=== PATIENT | male | born 1955 | race Caucasian/White ===

== ENCOUNTER 2017-05-23 05:35 | Inpatient (IN) | payer MEDICAID ==
[2017-05-22 13:13] LABS: BASOPHILS # (AUTO) 0.1 X10'3 (0-0.2); BASOPHILS % (AUTO) 0.6 % (0-1); EOSINOPHILS # (AUTO) 0.2 X10'3 (0-0.9); EOSINOPHILS % (AUTO) 1.8 % (0-6); LYMPHOCYTES % (AUTO) 11.4 % (21-51); MEAN CORPUSCULAR HEMOGLOBIN 32.6 PG (27.0-31.0); MEAN CORPUSCULAR HGB CONC 33.8 % (33.0-36.5); MEAN CORPUSCULAR VOLUME 96.3 FL (78-98); MEAN PLATELET VOLUME 10.2 FL (7.4-10.4); MONOCYTES # (AUTO) 0.9 X10'3 (0-0.9); MONOCYTES % (AUTO) 9.6 % (2-12); NEUTROPHILS # (AUTO) 6.8 X10'3 (1.8-7.7); NEUTROPHILS % (AUTO) 76.6 % (42-75); PRE OP HEMATOCRIT 39.1 % (42.0-52.0); PRE OP HEMOGLOBIN 13.2 g/dL (14.0-17.9); PRE OP PLATELET COUNT 178 X10'3 (140-440); RED BLOOD COUNT 4.06 X10'6 (4.70-6.10); RED CELL DISTRIBUTION WIDTH 15.4 % (11.5-14.5)
[2017-05-22 13:14] LABS: CLARITY,URINE CLEAR (Clear); COLOR,URINE YELLOW (Yellow); GLUCOSE, URINE NEGATIVE (Neg); KETONES,URINE NEGATIVE (Neg); LEUKOCYTE ESTERASE ,URINE NEGATIVE (Neg); NITRITES, URINE NEGATIVE (Neg); OCCULT BLOOD,URINE NEGATIVE (Neg); PROTEIN,URINE NEGATIVE (Neg); UROBILINOGEN,URINE 0.2 E.U/dL (0.2-1.0)
[2017-05-22 13:22] LABS: UA COLLECTION TYPE CLN CATCH MIDSTREAM
[2017-05-22 13:24] LABS: PRE OP INR 1.1 INR; PRE OP PROTIME 11.2 SECONDS (9.0-12.0)
[2017-05-22 13:28] LABS: HEMOGLOBIN A1C 6.9 % (4.5-6.2)
[2017-05-22 13:30] LABS: ALBUMIN 3.2 G/DL (3.4-5.0); ALKALINE PHOSPHATASE 159 IU/L (46-116); BLOOD UREA NITROGEN 35 MG/DL (7-18); CALCIUM 8.9 MG/DL (8.5-10.1); CHLORIDE 102 MMOL/L (99-107); CREATININE 1.13 MG/DL (0.60-1.10); PRE OP ALT 53 U/L (30-65); PRE OP ANION GAP 10 (8-16); PRE OP AST 20 U/L (10-37); PRE OP BILIRUB, TOTAL 0.6 MG/DL (0.0-1.0); PRE OP GLUCOSE 170 MG/DL (70-104); PRE OP SODIUM 143 MMOL/L (135-145); TOTAL CARBON DIOXIDE 30.8 MMOL/L (24-32); TOTAL PROTEIN 6.5 G/DL (6.4-8.2); eGFR 66 ML/MIN
[2017-05-22 13:31] LABS: PRE OP POTASSIUM 3.1 MMOL/L (3.4-5.1)
[2017-05-23] VITALS (19 sets, daily range): BP systolic 100–148; BP diastolic 56–88
[~2017-05-23] VITALS: Ht 170.2 cm; Wt 137.0 kg
[2017-05-23 05:16] LABS: ABG BASE EXCESS 4.2 mmol/L (-2.0-3.0); ABG OXYGEN SATURATION 91.3 % (95-98); ABG PH (T) 7.474 (7.350-7.450); ABG PO2 (T) 60.5 mmHg (83-108); ALLEN'S TEST Positive; FCOHb 1.3 % (0.5-1.5); FMetHb 0.3 % (0.3-1.12); FO2Hb 89.8 % (94-100); TOTAL HEMOGLOBIN 13.4 G/dl (14.0-18.0)
[~2017-05-23 05:35] MED LIST: ALBU18HF2 INH; AMIO200T57 PO; ATOR40TA71 PO; BUDE0.5A11 IH; CARV25TA PO; COU5T PO; HYDR-565 PO; LISI-600 PO; METF500T PO; NITR0.4T51 SL; VANCOMYCIN INJ 1000 MG in NORMAL SALINE 250ml IV.SOLN IV ONE; albuterol 2.5 MG/3 ML nebule NEB ONE; ceFAZolin inj. 3,000 MG in normal saline 100ml IV soln 100 ML IV ONE; famotidine 20mg tablet PO ONE; mupirocin 2% ointment 22GM TP ONE; ringers solution, lacted 1,000 ML IV SCH
[2017-05-23] MEDS ORDERED: propofol inj 40 ML IV ONE (05:50)
[2017-05-23] MEDS ORDERED: propofol inj 20 ML IV ONE ×2 (05:51)
[2017-05-23] MEDS ORDERED: rocuronium 10mg/ml inj IV ONE (05:51)
[2017-05-23] MEDS ORDERED: etomidate 2mg/ml inj. ONE (05:52)
[2017-05-23] MEDS ORDERED: LIDOcaine 1%/PF (10mg/ml) 5ml vial ONE (05:53)
[2017-05-23] MEDS ORDERED: LIDOcaine 1% (10mg/ml) 2ml vial ONE (05:58)
[2017-05-23] MEDS ORDERED: epiNEPHrine 1 mg/ml inj ONE (05:59)
[2017-05-23] MEDS ORDERED: phenylephrine 10mg/ml inj IV ONE (05:59)
[2017-05-23] MEDS ORDERED: mupirocin 2% ointment 22GM TP ONE (06:00)
[2017-05-23] MEDS: insulin regular, human 100 UNITS in normal saline 100ml IV soln 99 ML IV SCH ×6 (06:00→17:08)
[2017-05-23] MEDS ORDERED: MIDAZolam 5mg/ml 2ml vial IV ONE (06:00)
[2017-05-23] MEDS ORDERED: fentaNYL /PF 50mcg/ml 5ml ampule ONE ×5 (06:32→09:20)
[2017-05-23] MEDS ORDERED: MIDAZolam 5mg/ml 2ml vial ONE (06:34)
[2017-05-23] MEDS ORDERED: albuterol 2.5 MG/3 ML nebule ONE (06:41)
[2017-05-23] MEDS ORDERED: nitroGLYCERIN in D5W 50mg/250ml (Tridil) infusion IV ONE (07:00)
[2017-05-23] MEDS ORDERED: sevoflurane 250ml liquid IH ONE (07:00)
[2017-05-23] MEDS ORDERED: potassium Cl 2 mEq/ml inj IV ONE (07:00)
[2017-05-23] MEDS ORDERED: protamine sulf. 10mg/ml inj. IV ONE (07:00)
[2017-05-23] MEDS ORDERED: albuterol 2.5 MG/3 ML nebule NEB ONE (07:10)
[2017-05-23] MEDS ORDERED: Potassium Cl inj 40 MEQ in normal saline 250ml IV soln 230 ML IV ONE ×2 (07:20→10:25)
[2017-05-23 07:21] LABS: ISTAT CREATININE 1.2 mg/dL (0.8-1.3); ISTAT HGB 13.6 g/dl (14.0-18.0); ISTAT IONIZED CALCIUM 1.06 mmol/L (1.03-1.32); POC BUN/CREATININE RATIO 27.5 (5.4-32.0)
[2017-05-23] MEDS ORDERED: FURO-149 PO (07:25)
[2017-05-23 07:39] LABS: ISTAT K 2.9 mmol/L (3.5-5.1)
[2017-05-23] MEDS ORDERED: papaverine 30 mg/ml 2ml inj. ONE (08:00)
[2017-05-23] MEDS ORDERED: heparin 10,000 units/1 ML INJ ONE (08:00)
[2017-05-23] MEDS ORDERED: calcium chloride 100 MG/1 ML inj IV ONE (08:00)
[2017-05-23 08:36] LABS: ABG BASE EXCESS 2.9 mmol/L (-2.0-3.0); ABG HCO3 26.7 mmol/L (22.0-26.0); ABG OXYGEN SATURATION 99.2 % (95-98); ABG PCO2 38.1 mmHg (35.0-45.0); ABG PH 7.463 (7.350-7.450); ABG PO2 329.2 mmHg (60.0-100.0); CL (ABG) 104 mmol/L (99-107); FCOHb 0.5 % (0.5-1.5); FMetHb 0.3 % (0.3-1.12); FO2Hb 98.4 % (94-100); GLUCOSE (ABG) 180 mg/dl (70-105); IONIZED CA (ABG) 1.04 mmol/L (1.03-1.32); K (ABG) 4.2 mmol/L (3.3-5.1); NA (ABG) 134 mmol/L (135-145); TOTAL HEMOGLOBIN 11.7 G/dl (14.0-18.0)
[2017-05-23] MEDS ORDERED: papaverine 30 mg/ml 2ml inj. IA ONE (09:02)
[2017-05-23] MEDS ORDERED: ePHEDrine 50MG/ML INJ. ONE (09:23)
[2017-05-23 10:21] LABS: ABG BASE EXCESS VENOUS 4.7 mmol/L; ABG HCO3 VENOUS 30.7 mmol/L; ABG PCO2 VENOUS 52.1 mmHg; ABG PO2 VENOUS 44.8 mmHg; CL (ABG) 103 mmol/L (99-107); FCOHb VENOUS 0.9 %; FHHb VENOUS 22.9 %; FMetHb VENOUS 0.2 %; GLUCOSE (ABG) 162 mg/dl (70-105); IONIZED CA (ABG) 1.08 mmol/L (1.03-1.32); K (ABG) 3.3 mmol/L (3.3-5.1); NA (ABG) 135 mmol/L (135-145); TOTAL HEMOGLOBIN 11.9 G/dl (14.0-18.0)
[2017-05-23] MEDS ORDERED: niCARDipine/sod cl 20mg/200ml 200 ML IV PRN (11:01)
[2017-05-23] MEDS ORDERED: nitroGLYCERIN-Tridil 50MG/D5W 250 ML IV PRN (11:01)
[2017-05-23] MEDS ORDERED: DOPamine 400mg/D5W 250ml 250 ML IV PRN (11:01)
[2017-05-23] MEDS ORDERED: albumin (Human) 5% 250ml 250 ML IV PRN (11:05)
[2017-05-23] MEDS ORDERED: sodium phosphate inj. 15 MMOL in dextrose 5%-water 150 ML IV PRN (11:05)
[2017-05-23] MEDS ORDERED: dextrose 50%-water 50ml dispensing syringe IV PRN (11:05)
[2017-05-23] MEDS ORDERED: potassium Cl 20mEq/100mL bag 100 ML IV PRN (11:05)
[2017-05-23] MEDS ORDERED: magnesium 2GM in 50ml NS 50 ML IV PRN (11:05)
[2017-05-23] MEDS ORDERED: sodium phosphate inj. 30 MMOL in dextrose 5%-water 250 ML IV PRN (11:05)
[2017-05-23] MEDS ORDERED: normal saline 250ml IV soln 250 ML IV PRN (11:05)
[2017-05-23] MEDS: insulin regular, human inj. 100 UNITS in normal saline 100ml IV soln 100 ML IV SCH ×2 (11:05)
[2017-05-23] MEDS ORDERED: ondansetron/PF 4mg/2ml inj IV PRN (11:05)
[2017-05-23] MEDS ORDERED: magnesium 4gm in 100ml NS 100 ML IV PRN (11:05)
[2017-05-23] MEDS ORDERED: magnesium hydroxide 30ml (MOM) UD suspension PO PRN (11:05)
[2017-05-23] MEDS ORDERED: Neutra Phos packet PO PRN (11:05)
[2017-05-23] MEDS ORDERED: metoclopramide 5 mg/ml inj IV PRN (11:05)
[2017-05-23] MEDS: morphine 4 MG/ML inj SYRINge IV PRN ×5 (11:30→19:36)
[2017-05-23 12:06] LABS: ABG BASE EXCESS 4.3 mmol/L (-2.0-3.0); ABG HCO3 29.5 mmol/L (22.0-26.0); ABG PCO2 (T) 44.8 mmHg (35.0-48.0); ABG PH (T) 7.433 (7.350-7.450); ABG PO2 (T) 94.8 mmHg (83-108); ALLEN'S TEST Positive; FCOHb 0.6 % (0.5-1.5); FMetHb 0.1 % (0.3-1.12); FO2Hb 96.3 % (94-100); MINUTE VOLUME 10 L/min; PEEP 5 cm H2O; RESPIRATORY RATE 14 b/min; RESPIRATORY RATE (OBSERVED) 14 b/min; TIDAL VOLUME 750 mL; TOTAL HEMOGLOBIN 12.5 G/dl (14.0-18.0)
[2017-05-23 12:15] LABS: BASOPHILS % (AUTO) 0.2 % (0-1); EOSINOPHILS # (AUTO) 0.2 X10'3 (0-0.9); HEMATOCRIT 35.2 % (42.0-52.0); HEMOGLOBIN 11.8 g/dl (14.0-17.9); LYMPHOCYTES # (AUTO) 0.9 X10'3 (1.1-4.8); LYMPHOCYTES % (AUTO) 9.1 % (21-51); MEAN CORPUSCULAR HEMOGLOBIN 32.2 PG (27.0-31.0); MEAN CORPUSCULAR HGB CONC 33.5 % (33.0-36.5); MEAN CORPUSCULAR VOLUME 96.2 FL (78-98); MEAN PLATELET VOLUME 9.6 FL (7.4-10.4); MONOCYTES # (AUTO) 0.6 X10'3 (0-0.9); MONOCYTES % (AUTO) 6.4 % (2-12); NEUTROPHILS # (AUTO) 7.9 X10'3 (1.8-7.7); NEUTROPHILS % (AUTO) 82.3 % (42-75); PLATELET COUNT 158 X10'3 (140-440); RED BLOOD COUNT 3.67 X10'6 (4.70-6.10); RED CELL DISTRIBUTION WIDTH 14.9 % (11.5-14.5); WHITE BLOOD COUNT 9.6 X10'3 (4.5-11.0)
[2017-05-23] MEDS: sodium chloride 0.45% 1,000 ML IV SCH (12:22)
[2017-05-23 12:24] LABS: ALBUMIN 2.8 G/DL (3.4-5.0); ANION GAP 7 (8-16); BLOOD UREA NITROGEN 26 MG/DL (7-18); BUN/CREATININE RATIO 24.3 (5.4-32.0); CALCIUM 8.1 MG/DL (8.5-10.1); CHLORIDE 105 MMOL/L (99-107); CREATININE 1.07 MG/DL (0.60-1.10); GLUCOSE 116 MG/DL (70-104); POTASSIUM 3.1 MMOL/L (3.5-5.1); SODIUM 143 MMOL/L (135-145); TOTAL CARBON DIOXIDE 31.4 MMOL/L (24-32); eGFR 70 ML/MIN
[2017-05-23] MEDS: insulin Lispro (HumaLOG) vial - multi-dose SQ SCH ×2 (12:33→18:00)
[2017-05-23] MEDS: potassium Cl 20mEq/100mL bag 100 ML IV PRN ×3 (13:23→17:04)
[2017-05-23 14:22] LABS: INR 1.1 INR; PARTIAL THROMBOPLASTIN TIME 28 SECONDS (22-32); PROTHROMBIN TIME 11.3 SECONDS (9.0-12.0)
[2017-05-23 14:37] LABS: ALANINE AMINOTRANSFERASE 47 U/L (12-78); ALBUMIN 2.8 G/DL (3.4-5.0); ALKALINE PHOSPHATASE 123 IU/L (46-116); ANION GAP 7 (8-16); ASPARTATE AMINO TRANSFERASE 26 U/L (10-37); BLOOD UREA NITROGEN 27 MG/DL (7-18); BUN/CREATININE RATIO 28.1 (5.4-32.0); CALCIUM 8.3 MG/DL (8.5-10.1); CHLORIDE 105 MMOL/L (99-107); CREATININE 0.96 MG/DL (0.60-1.10); GLUCOSE 144 MG/DL (70-104); MAGNESIUM 1.9 MG/DL (1.5-2.4); POTASSIUM 3.6 MMOL/L (3.5-5.1); SODIUM 142 MMOL/L (135-145); TOTAL CARBON DIOXIDE 30.5 MMOL/L (24-32); TOTAL PROTEIN 5.5 G/DL (6.4-8.2); eGFR 79 ML/MIN
[2017-05-23] MEDS: ceFAZolin inj. 1,000 MG in dextrose 5%-water 50ml 50 ML IV SCH ×2 (15:50→23:38)
[2017-05-23] MEDS: ketorolac tromethamine 15mg/ml inj. IV PRN ×2 (17:56→23:38)
[2017-05-23 18:55] LABS: BASOPHILS % (AUTO) 0.1 % (0-1); EOSINOPHILS # (AUTO) 0.2 X10'3 (0-0.9); EOSINOPHILS % (AUTO) 1.6 % (0-6); HEMATOCRIT 36.8 % (42.0-52.0); HEMOGLOBIN 12.4 g/dl (14.0-17.9); LYMPHOCYTES # (AUTO) 0.6 X10'3 (1.1-4.8); LYMPHOCYTES % (AUTO) 4.5 % (21-51); MEAN CORPUSCULAR HEMOGLOBIN 32.2 PG (27.0-31.0); MEAN CORPUSCULAR HGB CONC 33.8 % (33.0-36.5); MEAN CORPUSCULAR VOLUME 95.5 FL (78-98); MEAN PLATELET VOLUME 10.3 FL (7.4-10.4); MONOCYTES # (AUTO) 1.4 X10'3 (0-0.9); MONOCYTES % (AUTO) 10.3 % (2-12); NEUTROPHILS # (AUTO) 11.8 X10'3 (1.8-7.7); NEUTROPHILS % (AUTO) 83.5 % (42-75); PLATELET COUNT 179 X10'3 (140-440); RED BLOOD COUNT 3.85 X10'6 (4.70-6.10); RED CELL DISTRIBUTION WIDTH 15.3 % (11.5-14.5); WHITE BLOOD COUNT 14.1 X10'3 (4.5-11.0)
[2017-05-23] MEDS: HYDROcodone/acetaminophen 10/325mg tab PO PRN (19:39)
[2017-05-23 19:45] LABS: ANION GAP 5 (8-16); BLOOD UREA NITROGEN 25 MG/DL (7-18); CALCIUM 8.5 MG/DL (8.5-10.1); CHLORIDE 109 MMOL/L (99-107); CREATININE 0.96 MG/DL (0.60-1.10); GLUCOSE 125 MG/DL (70-104); MAGNESIUM 1.9 MG/DL (1.5-2.4); SODIUM 145 MMOL/L (135-145); TOTAL CARBON DIOXIDE 31.2 MMOL/L (24-32); eGFR 79 ML/MIN
[2017-05-23] MEDS: budesonide 0.5mg/2ml UD nebule IH SCH (19:51)
[2017-05-23] MEDS ORDERED: ketorolac tromethamine 15mg/ml inj. IV SCH (20:00)
[2017-05-23] MEDS: vancomycin/NS 1 GM ADD-VANTAGE 250 ML IV SCH (20:25)
[2017-05-23] MEDS: mupirocin 2% ointment 22GM NS SCH (20:26)
[2017-05-23] MEDS: docusate sod 100mg capsule PO SCH (20:26)
[2017-05-24] VITALS (25 sets, daily range): BP systolic 98–153; BP diastolic 60–94
[2017-05-24 03:10] LABS: BASOPHILS % (AUTO) 0.1 % (0-1); EOSINOPHILS # (AUTO) 0.1 X10'3 (0-0.9); EOSINOPHILS % (AUTO) 0.6 % (0-6); HEMATOCRIT 37.5 % (42.0-52.0); HEMOGLOBIN 12.5 g/dl (14.0-17.9); LYMPHOCYTES # (AUTO) 0.5 X10'3 (1.1-4.8); LYMPHOCYTES % (AUTO) 3.5 % (21-51); MEAN CORPUSCULAR HEMOGLOBIN 32.3 PG (27.0-31.0); MEAN CORPUSCULAR HGB CONC 33.4 % (33.0-36.5); MEAN CORPUSCULAR VOLUME 96.8 FL (78-98); MEAN PLATELET VOLUME 10.3 FL (7.4-10.4); MONOCYTES # (AUTO) 1.6 X10'3 (0-0.9); MONOCYTES % (AUTO) 10.2 % (2-12); NEUTROPHILS # (AUTO) 13.5 X10'3 (1.8-7.7); NEUTROPHILS % (AUTO) 85.6 % (42-75); PLATELET COUNT 171 X10'3 (140-440); RED BLOOD COUNT 3.87 X10'6 (4.70-6.10); RED CELL DISTRIBUTION WIDTH 15.2 % (11.5-14.5); WHITE BLOOD COUNT 15.8 X10'3 (4.5-11.0)
[2017-05-24 03:16] LABS: PARTIAL THROMBOPLASTIN TIME 24 SECONDS (22-32); PROTHROMBIN TIME 10.3 SECONDS (9.0-12.0)
[2017-05-24 03:20] LABS: ALANINE AMINOTRANSFERASE 51 U/L (12-78); ALBUMIN 2.9 G/DL (3.4-5.0); ALKALINE PHOSPHATASE 111 IU/L (46-116); ANION GAP 6 (8-16); ASPARTATE AMINO TRANSFERASE 32 U/L (10-37); BILIRUBIN,TOTAL 0.7 MG/DL (0.1-1.0); BLOOD UREA NITROGEN 23 MG/DL (7-18); BUN/CREATININE RATIO 21.1 (5.4-32.0); CALCIUM 8.5 MG/DL (8.5-10.1); CHLORIDE 105 MMOL/L (99-107); CREATININE 1.09 MG/DL (0.60-1.10); GLUCOSE 142 MG/DL (70-104); MAGNESIUM 3.1 MG/DL (1.5-2.4); PHOSPHORUS 3.8 MG/DL (2.3-4.5); POTASSIUM 3.9 MMOL/L (3.5-5.1); SODIUM 142 MMOL/L (135-145); TOTAL CARBON DIOXIDE 31.3 MMOL/L (24-32); TOTAL PROTEIN 5.9 G/DL (6.4-8.2); eGFR 68 ML/MIN
[2017-05-24] MEDS: potassium Cl 20mEq/100mL bag 100 ML IV PRN ×2 (04:10→09:10)
[2017-05-24] MEDS: morphine 4 MG/ML inj SYRINge IV PRN (04:21)
[2017-05-24] MEDS: ketorolac tromethamine 15mg/ml inj. IV PRN ×2 (05:39→13:00)
[2017-05-24] MEDS ORDERED: metoprolol tartrate 12.5mg (1/2 tablet) PO SCH (08:00)
[2017-05-24] MEDS: vancomycin/NS 1 GM ADD-VANTAGE 250 ML IV SCH ×2 (08:54→19:57)
[2017-05-24] MEDS: ceFAZolin inj. 1,000 MG in dextrose 5%-water 50ml 50 ML IV SCH ×3 (08:54→23:37)
[2017-05-24] MEDS: atorvastatin 10mg tablet PO SCH (08:55)
[2017-05-24] MEDS: HYDROcodone/acetaminophen 10/325mg tab PO PRN ×2 (08:55→22:12)
[2017-05-24] MEDS: docusate sod 100mg capsule PO SCH ×2 (08:56→19:57)
[2017-05-24] MEDS: amiodarone 200mg tablet PO SCH (08:56)
[2017-05-24] MEDS: aspirin 325mg tablet, delayed-release (Ecotrin) PO SCH (08:56)
[2017-05-24] MEDS: mupirocin 2% ointment 22GM NS SCH ×2 (08:56→19:57)
[2017-05-24] MEDS: pantoprazole 40mg Tablet.DR PO SCH (08:56)
[2017-05-24] MEDS: budesonide 0.5mg/2ml UD nebule IH SCH ×2 (09:07→19:58)
[2017-05-24] MEDS: insulin Lispro (HumaLOG) vial - multi-dose SQ SCH ×4 (09:09→20:53)
[2017-05-24] MEDS ORDERED: furosemide 40mg/4ml inj IV ONE (09:50)
[2017-05-24] MEDS: insulin regular, human inj. 100 UNITS in normal saline 100ml IV soln 100 ML IV SCH ×2 (11:05)
[2017-05-24] MEDS ORDERED: MESSAGE TO PHARMACY PO ONE (17:10)
[2017-05-24] MEDS: carVEDilol 12.5mg tablet PO SCH (19:57)
[2017-05-24] MEDS: insulin glargine (Lantus) pen - multi-dose SQ SCH (20:51)
[2017-05-25] VITALS (22 sets, daily range): BP systolic 102–159; BP diastolic 45–105
[2017-05-25 04:22] LABS: BASOPHILS % (AUTO) 0 % (0-1); EOSINOPHILS % (AUTO) 0.1 % (0-6); HEMATOCRIT 35.9 % (42.0-52.0); HEMOGLOBIN 11.9 g/dl (14.0-17.9); LYMPHOCYTES # (AUTO) 0.5 X10'3 (1.1-4.8); LYMPHOCYTES % (AUTO) 5.7 % (21-51); MEAN PLATELET VOLUME 10.1 FL (7.4-10.4); MONOCYTES # (AUTO) 1.3 X10'3 (0-0.9); MONOCYTES % (AUTO) 14.2 % (2-12); NEUTROPHILS # (AUTO) 7.5 X10'3 (1.8-7.7); PLATELET COUNT 130 X10'3 (140-440); RED CELL DISTRIBUTION WIDTH 15.4 % (11.5-14.5); WHITE BLOOD COUNT 9.3 X10'3 (4.5-11.0)
[2017-05-25 04:33] LABS: ALBUMIN 2.5 G/DL (3.4-5.0); ANION GAP 5 (8-16); BLOOD UREA NITROGEN 27 MG/DL (7-18); BUN/CREATININE RATIO 23.9 (5.4-32.0); CALCIUM 8.6 MG/DL (8.5-10.1); CHLORIDE 99 MMOL/L (99-107); CREATININE 1.13 MG/DL (0.60-1.10); GLUCOSE 191 MG/DL (70-104); MAGNESIUM 2.6 MG/DL (1.5-2.4); PHOSPHORUS 3.3 MG/DL (2.3-4.5); POTASSIUM 4.9 MMOL/L (3.5-5.1); SODIUM 134 MMOL/L (135-145); TOTAL CARBON DIOXIDE 30.1 MMOL/L (24-32); eGFR 66 ML/MIN
[2017-05-25] MEDS: HYDROcodone/acetaminophen 10/325mg tab PO PRN ×2 (05:02→19:33)
[2017-05-25] MEDS: budesonide 0.5mg/2ml UD nebule IH SCH ×2 (07:50→20:40)
[2017-05-25] MEDS: amiodarone 200mg tablet PO SCH (08:17)
[2017-05-25] MEDS: pantoprazole 40mg Tablet.DR PO SCH (08:17)
[2017-05-25] MEDS: aspirin 325mg tablet, delayed-release (Ecotrin) PO SCH (08:17)
[2017-05-25] MEDS: atorvastatin 10mg tablet PO SCH (08:17)
[2017-05-25] MEDS: furosemide 40mg tablet PO SCH (08:17)
[2017-05-25] MEDS: docusate sod 100mg capsule PO SCH ×2 (08:17→19:20)
[2017-05-25] MEDS ORDERED: magnesium citrate 296ml oral solution PO ONE (08:45)
[2017-05-25] MEDS: insulin Lispro (HumaLOG) vial - multi-dose SQ SCH ×2 (10:31→19:33)
[2017-05-25] MEDS: sodium chloride 0.45% 1,000 ML IV SCH (11:01)
[2017-05-25] MEDS: insulin regular, human inj. 100 UNITS in normal saline 100ml IV soln 100 ML IV SCH ×2 (11:05)
[2017-05-25] MEDS: mupirocin 2% ointment 22GM NS SCH (11:10)
[2017-05-25] MEDS: carVEDilol 12.5mg tablet PO SCH ×2 (12:15→19:20)
[2017-05-25] MEDS: insulin glargine (Lantus) pen - multi-dose SQ SCH (21:31)
[2017-05-26] VITALS (23 sets, daily range): BP systolic 95–144; BP diastolic 44–105
[2017-05-26] MEDS: insulin regular, human 100 UNITS in normal saline 100ml IV soln 99 ML IV SCH ×2 (00:40)
[2017-05-26 03:37] LABS: HEMATOCRIT 33.8 % (42.0-52.0); HEMOGLOBIN 11.4 g/dl (14.0-17.9); MEAN CORPUSCULAR HEMOGLOBIN 32.4 PG (27.0-31.0); MEAN CORPUSCULAR HGB CONC 33.7 % (33.0-36.5); MEAN CORPUSCULAR VOLUME 96.3 FL (78-98); MEAN PLATELET VOLUME 9.6 FL (7.4-10.4); PLATELET COUNT 128 X10'3 (140-440); RED BLOOD COUNT 3.51 X10'6 (4.70-6.10); RED CELL DISTRIBUTION WIDTH 15.1 % (11.5-14.5); WHITE BLOOD COUNT 7.6 X10'3 (4.5-11.0)
[2017-05-26 03:48] LABS: ALBUMIN 2.3 G/DL (3.4-5.0); ANION GAP 2 (8-16); BLOOD UREA NITROGEN 27 MG/DL (7-18); BUN/CREATININE RATIO 31.4 (5.4-32.0); CALCIUM 8.6 MG/DL (8.5-10.1); CHLORIDE 99 MMOL/L (99-107); CREATININE 0.86 MG/DL (0.60-1.10); GLUCOSE 150 MG/DL (70-104); MAGNESIUM 2.5 MG/DL (1.5-2.4); PHOSPHORUS 2.8 MG/DL (2.3-4.5); POTASSIUM 5.1 MMOL/L (3.5-5.1); SODIUM 134 MMOL/L (135-145); TOTAL CARBON DIOXIDE 32.6 MMOL/L (24-32); eGFR 90 ML/MIN
[2017-05-26] MEDS: HYDROcodone/acetaminophen 10/325mg tab PO PRN ×3 (04:58→21:34)
[2017-05-26] MEDS ORDERED: furosemide 40mg/4ml inj IV ONE (07:15)
[2017-05-26] MEDS ORDERED: magnesium citrate 296ml oral solution PO ONE (07:15)
[2017-05-26] MEDS: furosemide 40mg tablet PO SCH (08:34)
[2017-05-26] MEDS: pantoprazole 40mg Tablet.DR PO SCH (08:35)
[2017-05-26] MEDS: amiodarone 200mg tablet PO SCH (08:35)
[2017-05-26] MEDS: docusate sod 100mg capsule PO SCH ×2 (08:35→21:33)
[2017-05-26] MEDS: atorvastatin 10mg tablet PO SCH (08:35)
[2017-05-26] MEDS: aspirin 325mg tablet, delayed-release (Ecotrin) PO SCH (08:35)
[2017-05-26] MEDS: carVEDilol 12.5mg tablet PO SCH ×2 (08:35→21:33)
[2017-05-26] MEDS: insulin Lispro (HumaLOG) vial - multi-dose SQ SCH ×2 (08:43→19:29)
[2017-05-26 09:08] LABS: TOTAL CELLS COUNTED 100
[2017-05-26 09:09] LABS: ANISOCYTOSIS 1+; PLATELET ESTIMATE DECREASED
[2017-05-26 09:10] LABS: LARGE PLATELETS FEW; STOMATOCYTES 1+
[2017-05-26] MEDS: budesonide 0.5mg/2ml UD nebule IH SCH ×2 (09:19→21:13)
[2017-05-26] MEDS: insulin regular, human inj. 100 UNITS in normal saline 100ml IV soln 100 ML IV SCH ×2 (11:05)
[2017-05-26] MEDS: albuterol 2.5 MG/3 ML nebule NEB PRN (21:15)
[2017-05-26] MEDS: insulin glargine (Lantus) pen - multi-dose SQ SCH (21:39)
[2017-05-27] VITALS (18 sets, daily range): BP systolic 105–179; BP diastolic 56–82
[2017-05-27 04:30] LABS: BASOPHILS % (AUTO) 0 % (0-1); EOSINOPHILS # (AUTO) 0.1 X10'3 (0-0.9); EOSINOPHILS % (AUTO) 0.9 % (0-6); HEMATOCRIT 34.1 % (42.0-52.0); HEMOGLOBIN 11.6 g/dl (14.0-17.9); LYMPHOCYTES # (AUTO) 0.6 X10'3 (1.1-4.8); LYMPHOCYTES % (AUTO) 6.8 % (21-51); MEAN CORPUSCULAR HEMOGLOBIN 32.6 PG (27.0-31.0); MEAN CORPUSCULAR HGB CONC 34.1 % (33.0-36.5); MEAN CORPUSCULAR VOLUME 95.5 FL (78-98); MEAN PLATELET VOLUME 9.8 FL (7.4-10.4); MONOCYTES # (AUTO) 1.7 X10'3 (0-0.9); MONOCYTES % (AUTO) 20.8 % (2-12); NEUTROPHILS # (AUTO) 5.9 X10'3 (1.8-7.7); NEUTROPHILS % (AUTO) 71.5 % (42-75); PLATELET COUNT 146 X10'3 (140-440); RED BLOOD COUNT 3.57 X10'6 (4.70-6.10); RED CELL DISTRIBUTION WIDTH 15.3 % (11.5-14.5); WHITE BLOOD COUNT 8.2 X10'3 (4.5-11.0)
[2017-05-27 05:15] LABS: ALBUMIN 2.4 G/DL (3.4-5.0); ANION GAP 3 (8-16); BLOOD UREA NITROGEN 39 MG/DL (7-18); BUN/CREATININE RATIO 38.2 (5.4-32.0); CALCIUM 8.6 MG/DL (8.5-10.1); CHLORIDE 97 MMOL/L (99-107); CREATININE 1.02 MG/DL (0.60-1.10); GLUCOSE 162 MG/DL (70-104); MAGNESIUM 2.9 MG/DL (1.5-2.4); PHOSPHORUS 2.9 MG/DL (2.3-4.5); POTASSIUM 5.1 MMOL/L (3.5-5.1); SODIUM 135 MMOL/L (135-145); eGFR 74 ML/MIN
[2017-05-27 05:20] LABS: ACT @ 1.70 U 301 SEC (193-297); ACT @ 2.84 U 423 SEC (260-420); BASELINE ACT 142 SEC (101-148)
[2017-05-27 05:20] LABS: ACTIVATED CLOTTING TIME 137 SEC (101-148)
[2017-05-27] MEDS: aspirin 325mg tablet, delayed-release (Ecotrin) PO SCH (08:15)
[2017-05-27] MEDS: atorvastatin 10mg tablet PO SCH (08:15)
[2017-05-27] MEDS: carVEDilol 12.5mg tablet PO SCH ×2 (08:15→19:33)
[2017-05-27] MEDS: budesonide 0.5mg/2ml UD nebule IH SCH ×2 (08:15→20:13)
[2017-05-27] MEDS: amiodarone 200mg tablet PO SCH (08:15)
[2017-05-27] MEDS: furosemide 40mg tablet PO SCH (08:15)
[2017-05-27] MEDS: pantoprazole 40mg Tablet.DR PO SCH (08:15)
[2017-05-27] MEDS: docusate sod 100mg capsule PO SCH ×2 (08:15→19:33)
[2017-05-27] MEDS: albuterol 2.5 MG/3 ML nebule NEB PRN ×3 (10:55→20:13)
[2017-05-27] MEDS: sodium chloride 0.45% 1,000 ML IV SCH (11:01)
[2017-05-27] MEDS ORDERED: oxyCODONE/APAP 10/325mg tablet PO PRN ×2 (14:05)
[2017-05-27] MEDS: acetaminophen 325mg tablet PO PRN (17:30)
[2017-05-27] MEDS: insulin glargine (Lantus) pen - multi-dose SQ SCH (20:54)
[2017-05-27] MEDS ORDERED: furosemide 40mg/4ml inj IV ONE (21:10)
[2017-05-28] VITALS (19 sets, daily range): BP systolic 101–171; BP diastolic 63–107
[2017-05-28] MEDS: pantoprazole 40mg Tablet.DR PO SCH (08:04)
[2017-05-28] MEDS: carVEDilol 12.5mg tablet PO SCH ×2 (08:04→20:56)
[2017-05-28] MEDS: aspirin 325mg tablet, delayed-release (Ecotrin) PO SCH (08:04)
[2017-05-28] MEDS: atorvastatin 10mg tablet PO SCH (08:04)
[2017-05-28] MEDS: furosemide 40mg tablet PO SCH (08:05)
[2017-05-28] MEDS: docusate sod 100mg capsule PO SCH ×2 (08:05→20:55)
[2017-05-28] MEDS: amiodarone 200mg tablet PO SCH (08:05)
[2017-05-28] MEDS: budesonide 0.5mg/2ml UD nebule IH SCH ×2 (08:50→20:06)
[2017-05-28] MEDS: insulin Lispro (HumaLOG) vial - multi-dose SQ SCH (09:28)
[2017-05-28 10:01] LABS: BASOPHILS % (AUTO) 0.1 % (0-1); EOSINOPHILS % (AUTO) 0.4 % (0-6); HEMATOCRIT 37.1 % (42.0-52.0); HEMOGLOBIN 12.6 g/dl (14.0-17.9); LYMPHOCYTES # (AUTO) 0.5 X10'3 (1.1-4.8); LYMPHOCYTES % (AUTO) 4.2 % (21-51); MEAN CORPUSCULAR HEMOGLOBIN 32.4 PG (27.0-31.0); MEAN CORPUSCULAR VOLUME 95.2 FL (78-98); MEAN PLATELET VOLUME 9.1 FL (7.4-10.4); MONOCYTES # (AUTO) 1.7 X10'3 (0-0.9); MONOCYTES % (AUTO) 16.2 % (2-12); NEUTROPHILS # (AUTO) 8.4 X10'3 (1.8-7.7); NEUTROPHILS % (AUTO) 79.1 % (42-75); PLATELET COUNT 170 X10'3 (140-440); RED CELL DISTRIBUTION WIDTH 14.8 % (11.5-14.5); WHITE BLOOD COUNT 10.6 X10'3 (4.5-11.0)
[2017-05-28 10:11] LABS: ALBUMIN 2.4 G/DL (3.4-5.0); ANION GAP 3 (8-16); BLOOD UREA NITROGEN 35 MG/DL (7-18); BUN/CREATININE RATIO 38.5 (5.4-32.0); CALCIUM 8.4 MG/DL (8.5-10.1); CHLORIDE 100 MMOL/L (99-107); CREATININE 0.91 MG/DL (0.60-1.10); GLUCOSE 247 MG/DL (70-104); POTASSIUM 4.7 MMOL/L (3.5-5.1); SODIUM 136 MMOL/L (135-145); TOTAL CARBON DIOXIDE 32.8 MMOL/L (24-32); eGFR 84 ML/MIN
[2017-05-28 10:14] LABS: MAGNESIUM 2.1 MG/DL (1.5-2.4); PHOSPHORUS 3.5 MG/DL (2.3-4.5); POTASSIUM 4.7 MMOL/L (3.5-5.1)
[2017-05-28] MEDS: ibuprofen tablet 400 MG TABLET PO SCH ×3 (10:37→18:05)
[2017-05-28 13:25] LABS: ABG BASE EXCESS 6.9 mmol/L (-2.0-3.0); ABG HCO3 31.6 mmol/L (22.0-26.0); ABG OXYGEN SATURATION 95.4 % (95-98); ABG PCO2 (T) 45.3 mmHg (35.0-48.0); ABG PH (T) 7.462 (7.350-7.450); ABG PO2 (T) 80.1 mmHg (83-108); FCOHb 0.7 % (0.5-1.5); FLOW 3 L/min; FMetHb 0.1 % (0.3-1.12); FO2Hb 94.6 % (94-100); TOTAL HEMOGLOBIN 13.1 G/dl (14.0-18.0)
[2017-05-28] MEDS ORDERED: potassium Cl 40MEQ/NS 500ml 500 ML IV PRN ×2 (14:25)
[2017-05-28] MEDS ORDERED: magnesium 4gm in 100ml NS 100 ML IV PRN (14:25)
[2017-05-28] MEDS ORDERED: magnesium 2GM in 50ml NS 50 ML IV PRN (14:25)
[2017-05-28] MEDS ORDERED: potassium Cl 20 mEq SR tablet PO PRN ×2 (14:25)
[2017-05-28] MEDS ORDERED: magnesium Cl slow-release 64mg tablet PO PRN (14:25)
[2017-05-28] MEDS: magnesium Cl slow-release 64mg tablet PO SCH (20:00)
[2017-05-28] MEDS: potassium Cl 20 mEq SR tablet PO SCH (20:00)
[2017-05-28] MEDS: insulin glargine (Lantus) pen - multi-dose SQ SCH (21:06)
[2017-05-28] MEDS: acetaminophen 325mg tablet PO PRN (23:13)
[2017-05-29 03:00] VITALS: BP 128/61
[2017-05-29] MEDS: acetaminophen 325mg tablet PO PRN ×2 (03:03→19:22)
[2017-05-29] MEDS: albuterol 2.5 MG/3 ML nebule NEB PRN ×2 (03:03→20:02)
[2017-05-29] MEDS ORDERED: furosemide 40mg/4ml inj IV STA (03:10)
[2017-05-29 05:44] LABS: BASOPHILS % (AUTO) 0.1 % (0-1); EOSINOPHILS # (AUTO) 0.1 X10'3 (0-0.9); EOSINOPHILS % (AUTO) 0.7 % (0-6); HEMATOCRIT 36.3 % (42.0-52.0); HEMOGLOBIN 12.3 g/dl (14.0-17.9); LYMPHOCYTES # (AUTO) 0.7 X10'3 (1.1-4.8); MEAN CORPUSCULAR HEMOGLOBIN 32.2 PG (27.0-31.0); MEAN CORPUSCULAR HGB CONC 33.9 % (33.0-36.5); MEAN CORPUSCULAR VOLUME 95.2 FL (78-98); MEAN PLATELET VOLUME 10.1 FL (7.4-10.4); MONOCYTES # (AUTO) 1.9 X10'3 (0-0.9); MONOCYTES % (AUTO) 16.8 % (2-12); NEUTROPHILS # (AUTO) 8.7 X10'3 (1.8-7.7); NEUTROPHILS % (AUTO) 76.4 % (42-75); PLATELET COUNT 167 X10'3 (140-440); RED BLOOD COUNT 3.81 X10'6 (4.70-6.10); RED CELL DISTRIBUTION WIDTH 15.2 % (11.5-14.5); WHITE BLOOD COUNT 11.4 X10'3 (4.5-11.0)
[2017-05-29 06:00] VITALS: BP 113/65
[2017-05-29 06:26] LABS: ALBUMIN 2.4 G/DL (3.4-5.0); ANION GAP 4 (8-16); BLOOD UREA NITROGEN 33 MG/DL (7-18); BUN/CREATININE RATIO 31.1 (5.4-32.0); CALCIUM 8.8 MG/DL (8.5-10.1); CHLORIDE 101 MMOL/L (99-107); CREATININE 1.06 MG/DL (0.60-1.10); GLUCOSE 165 MG/DL (70-104); MAGNESIUM 2.1 MG/DL (1.5-2.4); PHOSPHORUS 4.1 MG/DL (2.3-4.5); POTASSIUM 5.1 MMOL/L (3.5-5.1); SODIUM 141 MMOL/L (135-145); TOTAL CARBON DIOXIDE 35.7 MMOL/L (24-32); eGFR 71 ML/MIN
[2017-05-29] MEDS: potassium Cl 20 mEq SR tablet PO SCH ×2 (08:00→19:27)
[2017-05-29] MEDS: magnesium Cl slow-release 64mg tablet PO SCH ×2 (08:00→19:27)
[2017-05-29] MEDS: K and/or MAG REPLACEMENT MC SCH (08:00)
[2017-05-29] MEDS: furosemide 40mg tablet PO SCH (08:40)
[2017-05-29] MEDS: atorvastatin 10mg tablet PO SCH (08:40)
[2017-05-29] MEDS: carVEDilol 12.5mg tablet PO SCH ×2 (08:40→19:16)
[2017-05-29] MEDS: docusate sod 100mg capsule PO SCH ×2 (08:40→19:25)
[2017-05-29] MEDS: aspirin 325mg tablet, delayed-release (Ecotrin) PO SCH (08:40)
[2017-05-29] MEDS: ibuprofen tablet 400 MG TABLET PO SCH (08:41)
[2017-05-29] MEDS: amiodarone 200mg tablet PO SCH (08:41)
[2017-05-29] MEDS: insulin Lispro (HumaLOG) vial - multi-dose SQ SCH ×3 (08:47→19:20)
[2017-05-29] MEDS: budesonide 0.5mg/2ml UD nebule IH SCH ×2 (08:51→19:59)
[2017-05-29] MEDS ORDERED: furosemide 40mg/4ml inj IV ONE (09:05)
[2017-05-29] MEDS: pantoprazole 40mg Tablet.DR PO SCH (10:16)
[2017-05-29 11:00] VITALS: BP 113/63
[2017-05-29] MEDS: sodium chloride 0.45% 1,000 ML IV SCH (11:01)
[2017-05-29] MEDS: ibuprofen 200mg tablet PO SCH ×2 (13:12→18:19)
[2017-05-29 19:00] VITALS: BP 106/52
[2017-05-29] MEDS: insulin glargine (Lantus) pen - multi-dose SQ SCH (21:42)
[2017-05-29 23:00] VITALS: BP 73/34
[2017-05-29 23:20] VITALS: BP 90/56
[2017-05-30 03:00] VITALS: BP 111/57
[2017-05-30] MEDS: acetaminophen 325mg tablet PO PRN (03:35)
[2017-05-30 06:00] VITALS: BP 98/48
[2017-05-30 06:24] LABS: BASOPHILS % (AUTO) 0.3 % (0-1); EOSINOPHILS # (AUTO) 0.2 X10'3 (0-0.9); HEMOGLOBIN 11.8 g/dl (14.0-17.9); LYMPHOCYTES # (AUTO) 0.8 X10'3 (1.1-4.8); LYMPHOCYTES % (AUTO) 6.9 % (21-51); MEAN CORPUSCULAR HEMOGLOBIN 32.2 PG (27.0-31.0); MEAN CORPUSCULAR HGB CONC 33.6 % (33.0-36.5); MEAN CORPUSCULAR VOLUME 95.8 FL (78-98); MEAN PLATELET VOLUME 9.7 FL (7.4-10.4); MONOCYTES # (AUTO) 1.5 X10'3 (0-0.9); MONOCYTES % (AUTO) 13.3 % (2-12); NEUTROPHILS # (AUTO) 8.7 X10'3 (1.8-7.7); NEUTROPHILS % (AUTO) 77.5 % (42-75); PLATELET COUNT 183 X10'3 (140-440); RED BLOOD COUNT 3.65 X10'6 (4.70-6.10); RED CELL DISTRIBUTION WIDTH 15.9 % (11.5-14.5); WHITE BLOOD COUNT 11.2 X10'3 (4.5-11.0)
[2017-05-30 06:54] LABS: ALBUMIN 2.2 G/DL (3.4-5.0); ANION GAP 6 (8-16); BLOOD UREA NITROGEN 43 MG/DL (7-18); BUN/CREATININE RATIO 35.5 (5.4-32.0); CALCIUM 8.2 MG/DL (8.5-10.1); CHLORIDE 99 MMOL/L (99-107); CREATININE 1.21 MG/DL (0.60-1.10); GLUCOSE 146 MG/DL (70-104); MAGNESIUM 2.1 MG/DL (1.5-2.4); PHOSPHORUS 3.9 MG/DL (2.3-4.5); SODIUM 138 MMOL/L (135-145); TOTAL CARBON DIOXIDE 32.9 MMOL/L (24-32); eGFR 61 ML/MIN
[2017-05-30] MEDS: carVEDilol 12.5mg tablet PO SCH (08:00)
[2017-05-30] MEDS: K and/or MAG REPLACEMENT MC SCH (08:00)
[2017-05-30] MEDS: magnesium Cl slow-release 64mg tablet PO SCH (08:00)
[2017-05-30] MEDS: potassium Cl 20 mEq SR tablet PO SCH (08:00)
[2017-05-30] MEDS ORDERED: furosemide 40mg tablet PO SCH (08:00)
[2017-05-30] MEDS: amiodarone 200mg tablet PO SCH (08:00)
[2017-05-30] MEDS: budesonide 0.5mg/2ml UD nebule IH SCH (08:26)
[2017-05-30] MEDS: pantoprazole 40mg Tablet.DR PO SCH (08:43)
[2017-05-30] MEDS: ibuprofen 200mg tablet PO SCH (08:43)
[2017-05-30] MEDS: docusate sod 100mg capsule PO SCH (08:43)
[2017-05-30] MEDS: aspirin 325mg tablet, delayed-release (Ecotrin) PO SCH (08:43)
[2017-05-30] MEDS: atorvastatin 10mg tablet PO SCH (08:44)
[2017-05-30] MEDS ORDERED: traMADol 50MG tablet PO PRN (08:50)
[2017-05-30] MEDS: insulin Lispro (HumaLOG) vial - multi-dose SQ SCH ×2 (10:03→12:40)
[2017-05-30 11:00] VITALS: BP 96/67
== END 2017-05-30 12:45 | DRG 166 ==
LOC: PAS IN 05:35 → EDSTATUS 07:30 → ICU 2S 10:53 → PCU 3S 05-28 16:50
PROVIDERS: ADMIT Thoracic Surgery (Cardiothoracic Vascular Surgery); ATTEND Thoracic Surgery (Cardiothoracic Vascular Surgery)
PROC: 0JPT0PZ Removal of Cardiac Rhythm Related Device from Trunk Subcutaneous Tissue and Fascia, Open Approach (ICD-10-PCS; 2017-05-23)
PROC: 0JH609Z Insertion of Cardiac Resynchronization Defibrillator Pulse Generator into Chest Subcutaneous Tissue and Fascia, Open Approach (ICD-10-PCS; 2017-05-23)
PROC: 02PA0MZ Removal of Cardiac Lead from Heart, Open Approach (ICD-10-PCS; 2017-05-23)
PROC: 02HL3JZ Insertion of Pacemaker Lead into Left Ventricle, Percutaneous Approach (ICD-10-PCS; 2017-05-23)
PROC: 4B02XSZ Measurement of Cardiac Pacemaker, External Approach (ICD-10-PCS; 2017-05-23)
PROC: B246ZZ4 Ultrasonography of Right and Left Heart, Transesophageal (ICD-10-PCS; 2017-05-23)
PROC: 02HV33Z Insertion of Infusion Device into Superior Vena Cava, Percutaneous Approach (ICD-10-PCS; 2017-05-23)
PROC: B548ZZA Ultrasonography of Superior Vena Cava, Guidance (ICD-10-PCS; 2017-05-23)
PROC: 02100Z9 Bypass Coronary Artery, One Artery from Left Internal Mammary, Open Approach (ICD-10-PCS; principal; 2017-05-23 07:00)
DX: I25.10 Atherosclerotic heart disease of native coronary artery without angina pectoris (principal); Z68.42 Body mass index [BMI] 45.0-49.9, adult; I50.42 Chronic combined systolic (congestive) and diastolic (congestive) heart failure; I48.2 Chronic atrial fibrillation; E66.01 Morbid (severe) obesity due to excess calories; E11.9 Type 2 diabetes mellitus without complications; I25.5 Ischemic cardiomyopathy; I34.0 Nonrheumatic mitral (valve) insufficiency; J44.9 Chronic obstructive pulmonary disease, unspecified; Z95.810 Presence of automatic (implantable) cardiac defibrillator; Z79.01 Long term (current) use of anticoagulants; Z82.3 Family history of stroke; Z82.49 Family history of ischemic heart disease and other diseases of the circulatory system
CPT/HCPCS: 0232T; 36415; 36600; 71045; 71046; 80047; 80048; 80053; 81003; 82330; 82435; 82800; 82803; 82947; 82948; 83036; 83735; 84100; 84132; 84295; 85018; 85025; 85347; 85384; 85610; 85730; 86885; 86900; 86901; 86920; 87070; 93005; 93312; 93325; 93880; 93970; 94002; 94060; 94640; 94667; 94668; 94760; 97110; 97116; 97162; 97530; A6212; A6213; A6222; A6255; A6257; A6258; A6402; A6449; A7000; A7048; A7526; C1713; C1721; C1751; C1900; J0171; J0690; J1644; J1815; J1885; J1940; J2001; J2250; J2270; J2370; J2405; J2440; J2704; J2720; J3010; J3370; J3475; J3480; J3490; J7030; J7060; J7120; J7626; P9045